=== PATIENT | male | born 1965 | race Caucasian/White ===

== ENCOUNTER → 2018-07-08 | Outpatient (CLI) | payer BC ==
[~2018-07-08] MED LIST: NITR0.4T28 SL
== END | disposition home or self-care (01) ==
LOC: CFH 12:42
PROVIDERS: ATTEND Nurse Practitioner Family
DX: I07.1 Rheumatic tricuspid insufficiency (principal); I37.1 Nonrheumatic pulmonary valve insufficiency
CPT/HCPCS: 78452; 93017; 93306; A9502

== ENCOUNTER 2020-12-10 13:03 | Emergency (ER) | payer BC ==
[~2020-12-10] VITALS: Ht 180.3 cm; Wt 93.0 kg
--- NOTE | 2020-12-10 13:32 | NUR ---
PT HAS CO CP, SOB, WEAKNES FOR PAST 5 DAYS. STATES HE HAD NEFF AND PAIN BEHIND KNEE. DENIES N/V. NO RECENT INJURIES OR ILLNESS. STATES CP AND SOB HAPPENS W OUT ACTIVITY AND WITH. PT ON [employer]. HX OF HLD. OTHERWISE ACTIVE AND HEALTHY.
--- NOTE | 2020-12-10 14:02 | NUR ---
PT RESTING, SEEN BY ERMD. VSS. CALL LIGHT IN REACH. IMAGING TO BE DONE
[2020-12-10 14:12] VITALS: BP 118/71
[2020-12-10 14:20] LABS: BASOPHILS % (AUTO) 1 % (0-1); EOSINOPHILS % (AUTO) 0 % (1-7); LYMPHOCYTES % (AUTO) 20 % (22-44); MEAN CORPUSCULAR HGB CONC 34.3 g/dL (33.2-36.2); MEAN PLATELET VOLUME 9.6 fL (7.4-10.4); MONOCYTES % (AUTO) 7 % (2-9); NEUTROPHILS % (AUTO) 72 % (42-75); PLATELET COUNT 180 x10^3/uL (130-400); RED BLOOD COUNT 4.82 x10^6/uL (4.38-5.82); RED CELL DISTRIBUTION WIDTH 12.9 % (9.4-14.8)
[2020-12-10 14:30] LABS: ALBUMIN 4.2 g/dL (3.4-5.0); ANION GAP 5 mmol/L (5-15); CALCIUM 8.9 mg/dL (8.5-10.1); CHLORIDE 111 mmol/L (98-107); CREATININE 0.77 mg/dL (0.7-1.3)
[2020-12-10 14:34] LABS: TROPONIN I < 0.015 ng/mL (0.000-0.045)
== END 2020-12-10 15:48 | disposition home or self-care (01) ==
LOC: ED 14:24
DX: M79.662 Pain in left lower leg (principal); R06.00 Dyspnea, unspecified; E78.5 Hyperlipidemia, unspecified; I45.19 Other right bundle-branch block
CPT/HCPCS: 36415; 71045; 80048; 82040; 84484; 85025; 93005; 99285